=== PATIENT | male | born 2005 | race Caucasian/White ===

== ENCOUNTER 2024-01-05 | Emergency (ER) | payer SELFPAY ==
[~2024-01-05] VITALS: Ht 167.6 cm; Wt 70.0 kg
[2024-01-05 00:06] VITALS: BP 141/79; PULSE 87; RESP 18; TEMP 98.3; O2SAT 100
[2024-01-05] MEDS ORDERED: TOPUD MT (03:39)
[2024-01-05] MEDS ORDERED: IBUP-2028 MT (03:39)
== END 2024-01-05 05:29 | disposition home or self-care (01) ==
LOC: ER 00:03
DX: S92.354A Nondisplaced fracture of fifth metatarsal bone, right foot, initial encounter for closed fracture (principal); S92.334A Nondisplaced fracture of third metatarsal bone, right foot, initial encounter for closed fracture; S92.341A Displaced fracture of fourth metatarsal bone, right foot, initial encounter for closed fracture; S80.01XA Contusion of right knee, initial encounter; V49.9XXA Car occupant (driver) (passenger) injured in unspecified traffic accident, initial encounter; Y93.89 Activity, other specified; Y92.89 Other specified places as the place of occurrence of the external cause; Y99.8 Other external cause status
CPT/HCPCS: 73562; 73630; 29515; 99284; Z7610